=== PATIENT | male | born 1990 | race Caucasian/White ===

== ENCOUNTER 2019-02-17 19:16 | Emergency (ER) | payer OTHER ==
[2019-02-17 20:02] VITALS: BP 140/87
[2019-02-17] MEDS ORDERED: Fluorescein Sodium TOPICAL* 1 MG TEST STRIP OPHTHALMIC ONE (20:34)
[2019-02-17] MEDS ORDERED: Tobramycin 0.3% OPHTH.SOL* 5 ML BOT (regular eye drops) LEFT EYE ONE (20:56)
--- NOTE | 2019-02-17 20:56 | UC ---
Eye Complaint HPI - HPI Summary HPI Summary: 28 year old male with no PMH, no medications presents today with eye pain. Patient states he was working on a house taking down siding, rubbing left eye and within a few minutes he noted full feeling/ FB sensation, tearing, increased redness. no pain, no vision changes, no pain with EMO. NO prior ocurences. - History of Current Complaint Chief Complaint: UCEye Stated Complaint: LEFT EYE COMPLAINT Time Seen by Provider: 02/17/19 20:34 Hx Obtained From: Patient Onset/Duration: Sudden Onset, Lasting Hours Timing: Constant Severity Currently: None Pain Intensity: 0 Pain Scale Used: 0-10 Numeric Location of Injury: Conjunctiva Aggravating Factor(s): Blinking Alleviating Factor(s): Nothing Associated Signs And Symptoms: Positive: Drainage (Clear), Swelling. Negative: Vision Impairment Bilateral, Vision Impairment Right, Vision Impairment Left - Allergies/Home Medications Allergies/Adverse Reactions: Allergies Allergy/AdvReac Type Severity Reaction Status Date / Time No Known Allergies Allergy Verified 02/17/19 19:59 PMH/Surg Hx/FS Hx/Imm Hx Previously Healthy: Yes - Surgical History Surgical History: Yes Surgery Procedure, Year, and Place: Left leg fxs 2011 - Social History Alcohol Use: Rare Substance Use Type: None Smoking Status (MU): Never Smoked Tobacco Review of Systems All Other Systems Reviewed And Are Negative: Yes Eyes: Positive: Drainage, Eye Redness, Other - FB sensation. Negative: Blurred Vision, Photophobia Is Patient Immunocompromised?: No Physical Exam Triage Information Reviewed: Yes Appearance: Well-Appearing, No Pain Distress, Well-Nourished Vital Signs: Initial Vital Signs Temp 97.6 F 02/17/19 19:59 Pulse 72 02/17/19 19:59 Resp 16 02/17/19 19:59 BP 140/87 02/17/19 19:59 Pulse Ox 98 02/17/19 19:59 Vital Signs Reviewed: Yes Eyes: Positive: Conjunctiva Inflamed - chemosis noted over L eye lateral to medial, sparing cornea/ iris, inferiorly, FLU-GlU staining with no FB noted., Other: - EMOI, PERRLA ENT: Positive: Hearing grossly normal Neurological Exam: Normal Psychological Exam: Normal Skin Exam: Normal Eye Complaint Course/Dx - Course Course Of Treatment: - Chemosis of conjunctiva- accumulation of serous fluid under conjunctiva - Follow up with ophthamologist within 1-2 days if no improvement - ANtibiotics drops every 4 hours while awake - Normal saline drops as needed for help with lubricant - Differential Dx/Diagnosis Differential Diagnosis/HQI/PQRI: Periorbital Cellulitis, Orbital Cellulitis Provider Diagnosis: Chemosis of conjunctiva Discharge - Sign-Out/Discharge Documenting (check all that apply): Patient Departure All imaging exams completed and their final reports reviewed: No Studies - Discharge Plan Condition: Good Disposition: HOME Prescriptions: Sulfacet/PrednisoLONE OPTH.SO* [Blephamide Opth.LORIE*] 1 drop LEFT EYE Q4H #1 btl Patient Education Materials: General Allergic Reaction (ED) Forms: *Work Release Referrals: No Primary Care Phys,NOPCP [Primary Care Provider] - Additional Instructions: - Chemosis of conjunctiva- accumulation of serous fluid under conjunctiva - Follow up with ophthamologist within 1-2 days if no improvement - ANtibiotics drops every 4 hours while awake - Normal saline drops as needed for help with lubricant - Billing Disposition and Condition Condition: GOOD Disposition: Home
== END 2019-02-17 21:11 | disposition home or self-care (01) ==
LOC: UCCORT 19:16
DX: H11.422 Conjunctival edema, left eye (principal)
CPT/HCPCS: 99202; A9270-GY; G0463